=== PATIENT | female | born 1945 | race Caucasian/White ===

== ENCOUNTER 2019-11-06 21:23 | Emergency (ER) | payer MEDICARE ==
[~2019-11-06] VITALS: Ht 152.4 cm; Wt 65.8 kg
[2019-11-06] MEDS ORDERED: SIMVASTATIN40 MG PO (21:44)
[2019-11-06] MEDS ORDERED: TOPROL XL50 MG PO (21:44)
[2019-11-06] MEDS ORDERED: COZAAR 25 MG TA25 M1 PO (21:44)
[2019-11-06] MEDS ORDERED: FLONASE 0.05%50 MCG NARES (21:46)
[2019-11-06] MEDS ORDERED: FISH OIL 1,001000 M3 PO (21:47)
[2019-11-06] MEDS ORDERED: GNP NORWEGIAN1 EACH PO (21:47)
[2019-11-06] MEDS ORDERED: ASA81BEC PO (21:47)
[2019-11-06] MEDS ORDERED: BIOTIN1 MG PO (21:47)
[2019-11-07] MEDS ORDERED: BACLOFEN 10MG T10 MG PO (01:01)
[2019-11-07] MEDS ORDERED: MEDROLDOSEPACK PO (01:01)
[2019-11-07] MEDS ORDERED: LORCET 5-325 M1 EACH PO (01:01)
[2019-11-07 01:18] VITALS: BP 188/84
== END 2019-11-07 02:04 | disposition home or self-care (01) ==
LOC: M.ERS 21:23
DX: M54.16 Radiculopathy, lumbar region (principal); I10 Essential (primary) hypertension; Z88.0 Allergy status to penicillin; Z79.82 Long term (current) use of aspirin